=== PATIENT | female | born 1950 | race Caucasian/White ===

== ENCOUNTER 2022-06-03 13:02 | Outpatient (CLI) | payer OTHER | END 2022-06-03 13:03 | disposition home or self-care (01) | LOC: TBSIIMAG 13:02 | PROVIDERS: ATTEND Neurological Surgery | DX: M51.36 Other intervertebral disc degeneration, lumbar region (principal); M47.817 Spondylosis without myelopathy or radiculopathy, lumbosacral region; M48.07 Spinal stenosis, lumbosacral region; N28.9 Disorder of kidney and ureter, unspecified | CPT/HCPCS: 72148 ==

== ENCOUNTER 2023-04-12 16:29 | Emergency (ER) | payer OTHER ==
[~2023-04-12 16:29] MED LIST: Iopamidol-370 76% 500 ML MDV (1 ML CHARGE) ONE
[2023-04-12 17:47] LABS: #Eosinphils 0.1 thou/uL (0.0-0.7); #Monocytes 1.2 thou/uL (0.11-0.59); #Neutrophils 10.4 thou/uL (1.40-6.50); %Basophils 0.2 % (0.0-1.0); %Eosinophils 0.5 % (0.0-10.0); %Lymphocytes 12.8 % (21.0-51.0); %Monocytes 8.8 % (0.0-10.0); %Neutrophils 77.3 % (42.0-75.0); Hematocrit 43.8 % (36.0-47.0); Hemoglobin 14.9 g/dL (12.0-16.0); Mean Corpuscular Hemoglobin 31.6 pg (27.0-31.0); Mean Platelet Volume 12.1 fL (7.4-10.4); Platelet Count 139 10x3/uL (130-400); RBC Distribution Width 13.3 % (11.5-14.5); Red Blood Cell (RBC) Count 4.71 mill/uL (4.20-5.40); White Blood Cell (WBC) Count 13.4 10x3/uL (4.8-10.8)
[2023-04-12 18:15] LABS: Troponin I Less than 0.010 ng/mL (< 0.028)
[2023-04-12 18:19] LABS: ALT (SGPT) 25 U/L (8-55); AST (SGOT) 16 U/L (5-34); Albumin 4.1 g/dL (3.4-4.8); Alkaline Phosphatase 88 U/L (40-110); Anion Gap 14 mmol/L (10-20); BUN (Urea Nitrogen) 14 mg/dL (9.8-20.1); Bilirubin, Total 0.3 mg/dL (0.2-1.2); Calc. Creatinine Clearance 0 mL/min (70-130); Carbon Dioxide 23 mmol/L (23-31); Chloride 104 mmol/L (98-107); Estimated GFR 73; Glucose 196 mg/dL (83-110); Lipase 86 U/L (8-78); Potassium 3.6 mmol/L (3.5-5.1); Protein, Total 7.1 g/dL (5.8-8.1); Sodium 137 mmol/L (136-145)
[2023-04-12 18:43] LABS: Bacteria/HPF None Seen HPF (None Seen); Bilirubin Negative (Negative); Blood, Urine Negative (Negative); CAUTI Indications for Culture Pelvic or flank pain; Clarity Clear (Clear); Glucose, Urine (Dipstick) Greater than 1000 mg/dL (Negative); Ketone, Urine Negative (Negative); Leukocyte Negative Leu/uL (Negative); Nitrite Negative (Negative); Protein, Urine (Dipstick) Negative (Neg-Trace); RBC/HPF None Seen HPF (0-3); Specific Gravity, Urine 1.038 (1.002-1.036); Squamous Epithelial None Seen HPF (0-3); Urobilinogen Normal mg/dL (Less than 2); WBC/HPF 0-3 HPF (0-3); pH, Urine 7.5 (5.0-9.0)
[2023-04-12 18:48] LABS: Urine Culture Reflex No No
== END 2023-04-12 21:04 | disposition home or self-care (01) ==
LOC: ERS 16:29
DX: R07.1 Chest pain on breathing (principal); E11.9 Type 2 diabetes mellitus without complications; E78.5 Hyperlipidemia, unspecified; I10 Essential (primary) hypertension; Z79.899 Other long term (current) drug therapy
CPT/HCPCS: 71045; 71275; 74177; 80053; 81001; 83690; 84484; 85025; 93005; Q9967

== ENCOUNTER 2023-05-10 08:39 | Outpatient (CLI) | payer OTHER | END 2023-05-10 08:40 | disposition home or self-care (01) | LOC: NM 08:39 | PROVIDERS: ATTEND Psychiatry & Neurology Neurology | DX: R25.9 Unspecified abnormal involuntary movements (principal) | CPT/HCPCS: 78803; A9584 ×2 ==

== ENCOUNTER 2023-09-26 21:51 | Inpatient (IN) | payer OTHER ==
[2023-09-26 23:08] LABS: #Eosinphils 0.1 thou/uL (0.0-0.7); #Monocytes 0.7 thou/uL (0.11-0.59); #Neutrophils 7.6 thou/uL (1.40-6.50); %Basophils 0.2 % (0.0-1.0); %Eosinophils 0.5 % (0.0-10.0); %Lymphocytes 17.3 % (21.0-51.0); %Monocytes 7.1 % (0.0-10.0); %Neutrophils 74.5 % (42.0-75.0); Hematocrit 44.1 % (36.0-47.0); Hemoglobin 15.2 g/dL (12.0-16.0); Mean Corpuscular HGB CONC 34.5 g/dL (32.0-36.0); Mean Corpuscular Hemoglobin 31.1 pg (27.0-31.0); Mean Corpuscular Volume 90.2 fl (78.0-98.0); Mean Platelet Volume 11.9 fL (7.4-10.4); Platelet Count 162 10x3/uL (130-400); RBC Distribution Width 13.3 % (11.5-14.5); Red Blood Cell (RBC) Count 4.89 mill/uL (4.20-5.40); White Blood Cell (WBC) Count 10.3 10x3/uL (4.8-10.8)
[2023-09-26 23:23] LABS: ALT (SGPT) 38 U/L (8-55); AST (SGOT) 49 U/L (5-34); Albumin 4.3 g/dL (3.4-4.8); Alkaline Phosphatase 103 U/L (40-110); Anion Gap 19 mmol/L (10-20); BUN (Urea Nitrogen) 15 mg/dL (9.8-20.1); Bilirubin, Total 0.6 mg/dL (0.2-1.2); Calc. Creatinine Clearance 0 mL/min (70-130); Carbon Dioxide 21 mmol/L (23-31); Chloride 103 mmol/L (98-107); Estimated GFR 71; Globulin 2.7 g/dL (2.4-3.5); Glucose 133 mg/dL (83-110); Lipase 32 U/L (8-78); Potassium 3.8 mmol/L (3.5-5.1); Sodium 139 mmol/L (136-145)
[2023-09-26 23:31] LABS: Critical Call Chem Troponin I NUR.MB20@2331; Troponin I 7.962 ng/mL (< 0.028)
[2023-09-26] MEDS ORDERED: Enoxaparin 100 MG (1 mL) SYRINGE ONE (23:57)
[2023-09-27 00:31] LABS: INR-International Normal Ratio 1.1; PTT 30.1 sec (22.9-36.1); Prothrombin Time 13.7 sec (12.0-14.7)
[2023-09-27 01:51] VITALS: BMI 34.8
[2023-09-27] MEDS ORDERED: Acetaminophen 325 MG TAB PO PRN (05:26)
[2023-09-27 06:00] LABS: Cardiac Risk 4.3 (Less than 4.5)
[2023-09-27 06:14] LABS: Critical Call Chem Troponin I NUR.RS8@0614; Troponin I 8.383 ng/mL (< 0.028)
[2023-09-27] MEDS: Nitroglycerin 0.4 MG TAB (25 Tab Bottle) SL PRN (06:46)
[2023-09-27] MEDS ORDERED: Dextrose 5% in Water 1,000 ML IV PRN (07:40)
[2023-09-27] MEDS ORDERED: Glucagon 1 MG/ML KIT IM PRN (07:40)
[2023-09-27] MEDS ORDERED: HumaLOG 300 UNITS/3 ML VIAL SC PRN ×2 (07:40)
[2023-09-27] MEDS ORDERED: Dextrose 50% Abboject 50 ML SYRINGE SLOW IVP PRN (07:40)
[2023-09-27] MEDS ORDERED: Non-Formulary Item 1 EACH (Omeprazole [Omeprazole] 40 MG Capsule.Dr) PO SCH (09:00)
[2023-09-27] MEDS ORDERED: [UNRECOGNIZED DRUG - OTHER] PO SCH (09:00)
[2023-09-27] MEDS ORDERED: FOLIC ACID PO SCH (09:00)
[2023-09-27] MEDS ORDERED: VITAMIN B COMPLEX PO SCH (09:00)
[2023-09-27] MEDS: Nitroglycerin 2% Ointment 1 INCH/1 GM Packet TOP SCH ×2 (09:18→16:01)
[2023-09-27] MEDS: Primidone 250 MG TAB PO SCH (09:25)
[2023-09-27] MEDS: Multivitamin w/Zinc Stress 1 TAB PO SCH (09:25)
[2023-09-27] MEDS: Aspirin 325 mg Enteric Coated Tablet PO SCH (09:26)
[2023-09-27] MEDS: Carbidopa/Levodopa 25-250 mg Tablet PO SCH (09:26)
[2023-09-27] MEDS: Enoxaparin 80 MG (0.8 mL) SYRINGE SC SCH (09:26)
[2023-09-27 09:44] LABS: Critical Call Chem Troponin I RESULT DECREASING; Troponin I 6.433 ng/mL (< 0.028)
[2023-09-27] MEDS ORDERED: Adenosine 6 mg (2 mL) VIAL ONE (12:30)
[2023-09-27] MEDS ORDERED: Heparin 10,000 UNITS/ 10 ML VIAL ONE (12:30)
[2023-09-27] MEDS ORDERED: Verapamil 5 MG/2 ML VIAL ONE (12:30)
[2023-09-27] MEDS ORDERED: Nitroglycerin 50 MG/250 ML BOT 0 ML ONE (12:31)
[2023-09-27] MEDS ORDERED: Lidocaine 1% (PF) 30 ML VIAL ONE (12:32)
[2023-09-27] MEDS ORDERED: Midazolam HCl 2 mg/2 ml Vial ONE (13:14)
[2023-09-27] MEDS ORDERED: fentaNYL 50 mcg/mL 1 mL Vial ONE (13:14)
[2023-09-27] MEDS ORDERED: Sodium Chloride 0.9% 200 ML IV PRN (14:15)
[2023-09-27] MEDS ORDERED: Acetaminophen/Codeine 30-300mg Tablet PO PRN ×2 (14:15)
[2023-09-27] MEDS ORDERED: Nitroglycerin 0.4 MG TAB (25 Tab Bottle) SL PRN (14:15)
[2023-09-27 15:31] LABS: Critical Call Chem Troponin I RESULT DECREASING; Troponin I 4.216 ng/mL (< 0.028)
[2023-09-27] MEDS: Sodium Chloride 0.9% 1,000 ML IV SCH (16:02)
[2023-09-27 18:52] LABS: Critical Call Chem Troponin I RESULT DECREASING; Troponin I 3.681 ng/mL (< 0.028)
[2023-09-27] MEDS: Donepezil HCl 10 MG TAB PO SCH (21:47)
[2023-09-27] MEDS: Atorvastatin Calcium 40 MG TAB PO SCH (21:47)
[2023-09-27] MEDS: rOPINIRole HCl 0.25 MG TAB PO SCH (21:52)
[2023-09-28 04:20] LABS: Hemoglobin A1c 7.3 % (4.0-6.0)
[2023-09-28 04:24] LABS: Cardiac Risk 4.7 (Less than 4.5)
[2023-09-28 15:23] VITALS: BP 134/67; TEMP 97.5
== END 2023-09-28 15:00 | disposition home or self-care (01) | DRG 282 ==
LOC: ERS 21:51 → 2NO 09-27 00:16
PROVIDERS: ADMIT Hospitalist; ATTEND Family Medicine
DX: I21.4 Non-ST elevation (NSTEMI) myocardial infarction (principal); I20.0 Unstable angina; E11.9 Type 2 diabetes mellitus without complications; I10 Essential (primary) hypertension; E78.5 Hyperlipidemia, unspecified; R79.89 Other specified abnormal findings of blood chemistry; D69.6 Thrombocytopenia, unspecified; R25.1 Tremor, unspecified; Z88.2 Allergy status to sulfonamides; Z88.8 Allergy status to other drugs, medicaments and biological substances
CPT/HCPCS: 36415; 36416; 71045; 71275; 80053; 80061; 83036; 83690; 83880; 84484; 85025; 85379; 85610; 85730; 93005; 93010; 93458; 93798; 94760; 96372; 99152; C1760; C1769; C1894; J0153; J1644; J1650; J1815; J2001; J2250; J3010; J7050

== ENCOUNTER 2023-10-03 16:10 | Observation (INO) | payer OTHER ==
[2023-10-03 18:17] LABS: #Eosinphils 0.2 thou/uL (0.0-0.7); #Monocytes 0.7 thou/uL (0.11-0.59); #Neutrophils 5.1 thou/uL (1.40-6.50); %Basophils 0.3 % (0.0-1.0); %Eosinophils 2.3 % (0.0-10.0); %Lymphocytes 30.7 % (21.0-51.0); %Monocytes 8.3 % (0.0-10.0); %Neutrophils 58.1 % (42.0-75.0); Hematocrit 41.1 % (36.0-47.0); Hemoglobin 14.1 g/dL (12.0-16.0); Mean Corpuscular HGB CONC 34.3 g/dL (32.0-36.0); Mean Corpuscular Hemoglobin 31.2 pg (27.0-31.0); Mean Corpuscular Volume 90.9 fl (78.0-98.0); Mean Platelet Volume 12.5 fL (7.4-10.4); Platelet Count 179 10x3/uL (130-400); Red Blood Cell (RBC) Count 4.52 mill/uL (4.20-5.40); White Blood Cell (WBC) Count 8.8 10x3/uL (4.8-10.8)
[2023-10-03 18:24] LABS: Digoxin Less than 0.15 ng/mL (0.8-2.0)
[2023-10-03 18:26] LABS: ALT (SGPT) 43 U/L (8-55); AST (SGOT) 30 U/L (5-34); Alkaline Phosphatase 98 U/L (40-110); Anion Gap 19 mmol/L (10-20); BUN (Urea Nitrogen) 14 mg/dL (9.8-20.1); Bilirubin, Total 0.4 mg/dL (0.2-1.2); Calc. Creatinine Clearance 0 mL/min (70-130); Carbon Dioxide 21 mmol/L (23-31); Chloride 103 mmol/L (98-107); Estimated GFR 85; Glucose 105 mg/dL (83-110); Lipase 45 U/L (8-78); Potassium 3.6 mmol/L (3.5-5.1); Sodium 139 mmol/L (136-145)
[2023-10-03 18:28] LABS: Troponin I 0.055 ng/mL (< 0.028)
[2023-10-03] MEDS ORDERED: Aspirin Chewable 81 MG TAB ONE (18:49)
[2023-10-03 19:51] LABS: Troponin I 0.054 ng/mL (< 0.028)
[2023-10-03] MEDS ORDERED: Acetaminophen 325 MG TAB PO PRN (20:50)
[2023-10-03] MEDS ORDERED: Ondansetron PF 4 MG/2 ML Vial IVP PRN (20:50)
[2023-10-04 00:27] VITALS: BMI 34.5
[2023-10-04 05:10] LABS: #Eosinphils 0.2 thou/uL (0.0-0.7); #Monocytes 1.1 thou/uL (0.11-0.59); #Neutrophils 6.1 thou/uL (1.40-6.50); %Basophils 0.3 % (0.0-1.0); %Eosinophils 1.9 % (0.0-10.0); %Monocytes 10.4 % (0.0-10.0); %Neutrophils 57.9 % (42.0-75.0); Hematocrit 42.5 % (36.0-47.0); Mean Corpuscular HGB CONC 32.9 g/dL (32.0-36.0); Mean Corpuscular Hemoglobin 31.3 pg (27.0-31.0); Mean Platelet Volume 11.9 fL (7.4-10.4); Platelet Count 150 10x3/uL (130-400); RBC Distribution Width 14.2 % (11.5-14.5); Red Blood Cell (RBC) Count 4.48 mill/uL (4.20-5.40); White Blood Cell (WBC) Count 10.6 10x3/uL (4.8-10.8)
[2023-10-04 05:35] LABS: Mean Corpuscular Volume 94.9 fl (78.0-98.0)
[2023-10-04 05:38] LABS: Anion Gap 16 mmol/L (10-20); BUN (Urea Nitrogen) 15 mg/dL (9.8-20.1); Calc. Creatinine Clearance 87 mL/min (70-130); Calcium 9.7 mg/dL (7.8-10.44); Carbon Dioxide 23 mmol/L (23-31); Chloride 107 mmol/L (98-107); Estimated GFR 85; Glucose 102 mg/dL (83-110); Potassium 3.7 mmol/L (3.5-5.1); Sodium 142 mmol/L (136-145)
[2023-10-04] MEDS: Enoxaparin 40 MG (0.4 mL) SYRINGE SC SCH (09:04)
[2023-10-04] MEDS ORDERED: Loperamide HCl 2 MG CAP PO PRN (09:14)
[2023-10-04] MEDS: Empagliflozin 25 MG TAB PO SCH (11:23)
[2023-10-04] MEDS: Aspirin 325 mg Enteric Coated Tablet PO SCH (11:24)
[2023-10-04] MEDS: Isosorbide Mononitrate 30 MG ER.TAB PO SCH (11:24)
[2023-10-04] MEDS ORDERED: Carbidopa/Levodopa 25-250 mg Tablet PO SCH (15:00)
[2023-10-04] MEDS ORDERED: Primidone 250 MG TAB PO SCH (15:00)
[2023-10-04 16:44] VITALS: BP 131/65; TEMP 97.8
[2023-10-04] MEDS ORDERED: metFORMIN 500 MG TAB PO SCH (17:00)
[2023-10-04] MEDS ORDERED: Donepezil HCl 10 MG TAB PO SCH (21:00)
[2023-10-04] MEDS ORDERED: Propranolol 10 MG TAB PO SCH (21:00)
[2023-10-04] MEDS ORDERED: Atorvastatin Calcium 40 MG TAB PO SCH (21:00)
[2023-10-04] MEDS ORDERED: diphenhydrAMINE 25 MG CAP PO SCH (21:00)
[2023-10-04] MEDS ORDERED: rOPINIRole HCl 0.25 MG TAB PO SCH (21:00)
[2023-10-04] MEDS ORDERED: Melatonin 3 MG TAB PO SCH (21:00)
[2023-10-04] MEDS ORDERED: Multivitamin w/Zinc Stress 1 TAB PO SCH (21:00)
[2023-10-05] MEDS ORDERED: Isosorbide Mononitrate 30 MG ER.TAB PO SCH (09:00)
[2023-10-05] MEDS ORDERED: Loratadine 10 MG TAB PO SCH (09:00)
[2023-10-05] MEDS ORDERED: Empagliflozin 25 MG TAB PO SCH (09:00)
[2023-10-05] MEDS ORDERED: Aspirin 325 mg Enteric Coated Tablet PO SCH (09:00)
== END 2023-10-04 16:17 | disposition home or self-care (01) ==
LOC: ERS 16:10 → ERHOLD 20:18 → 2SW 10-04 00:19
PROVIDERS: ADMIT Internal Medicine; ATTEND Hospitalist
PROC: B246ZZZ Ultrasonography of Right and Left Heart (ICD-10-PCS; principal; 2023-10-03)
DX: R06.00 Dyspnea, unspecified (principal); R06.01 Orthopnea; R07.89 Other chest pain; I08.1 Rheumatic disorders of both mitral and tricuspid valves; I10 Essential (primary) hypertension; E78.5 Hyperlipidemia, unspecified; E11.9 Type 2 diabetes mellitus without complications; Z79.82 Long term (current) use of aspirin; Z79.85 Long-term (current) use of injectable non-insulin antidiabetic drugs; Z88.2 Allergy status to sulfonamides; Z88.8 Allergy status to other drugs, medicaments and biological substances; Z95.818 Presence of other cardiac implants and grafts
CPT/HCPCS: 36415; 71045; 80048; 80053; 80162; 83690; 83880; 84484; 85025; 93005; 93306; 96372; G0378; J1650